=== PATIENT | female | born 1995 ===

== ENCOUNTER 2024-02-19 15:39 | Emergency (ER) | payer SELFPAY ==
[2024-02-19 15:43] VITALS: BP 143/79; PULSE 118; TEMP 38.1; O2SAT 97; BMI 30.2
--- NOTE | 2024-02-19 15:54 | ED.GENADUL1 ---
HPI HPI - General Adult General Chief complaint: Abdominal Pain Stated complaint: ABDOMINAL PAIN, NAUSEA Time Seen by Provider: 02/19/24 15:41 Source: patient Mode of arrival: walk-in Limitations: no limitations History of Present Illness HPI narrative: 28-year-old female presents for nausea and diarrhea. The patient has had this since this morning. 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 No fever or hematemesis. She has been nauseous but no vomiting and she has not had a fever. Related Data Home Medications ?Medication ?Instructions ?Recorded ?Confirmed norgestimate 0.25 mg-ethinyl 1 tab PO DAILY 02/19/24 02/19/24 estradiol 35 mcg tablet sertraline 100 mg tablet 100 mg PO Q24H 02/19/24 02/19/24 Previous Rx's ?Medication ?Instructions ?Recorded ondansetron 4 mg disintegrating 4 mg PO Q6H PRN nausea and 02/19/24 tablet vomiting #20 tabs Allergies Allergy/AdvReac Type Severity Reaction Status Date / Time No Known Drug Allergies Allergy Verified 02/19/24 15:42 Opioid HPI Opioid Management Most Recent Opioid Data: No Data to Display Review of Systems ROS Narrative A ten point review of systems is negative except as noted above. Exam Narrative Exam Narrative: Nurses note and vital signs reviewed and patient is not hypoxic. General: The patient appears in no apparent distress. Patient is resting comfortably on cart. Skin: Warm, dry, no pallor noted. There is no rash noted. Head: Normocephalic, atraumatic Eye: Normal conjunctiva, no drainage Ears, Nose, Mouth, and Throat: oral mucosa is moist. Nares patent. Cardiovascular: Regular Rate and Rhythm Respiratory: Patient is in no distress, no accessory muscle use, lungs are clear to auscultation, no wheezing, rales or rhonchi Back: non-tender GI: Soft. Nondistended. Normal bowel sounds. Minimal tenderness in the mid abdomen Musculoskeletal: The patient has no evidence of calf tenderness, no pitting edema, symmetrical pulses noted bilaterally Neurological: A&O, normal speech Psychiatric: Cooperative Constitutional Vital Signs, click to edit/add: Last Vital Signs Temp 99.2 F 02/19/24 18:11 Pulse 98 H 02/19/24 17:21 Resp 18 02/19/24 17:21 BP 104/50 02/19/24 17:21 Pulse Ox 100 02/19/24 17:21 O2 Del Method Room Air 02/19/24 17:21 Course Vital Signs Vital signs: Vital Signs Temperature 100.6 F H 02/19/24 15:43 Pulse Rate 118 H 02/19/24 15:43 Respiratory Rate 18 02/19/24 15:43 Blood Pressure 143/79 H 02/19/24 15:43 Pulse Oximetry 97 02/19/24 15:43 Oxygen Delivery Method Room Air 02/19/24 15:43 Temperature 99.2 F 02/19/24 18:11 Pulse Rate 98 H 02/19/24 17:21 Respiratory Rate 18 02/19/24 17:21 Blood Pressure 104/50 02/19/24 17:21 Pulse Oximetry 100 02/19/24 17:21 Oxygen Delivery Method Room Air 02/19/24 17:21 Medical Decision Making MDM Narrative Medical decision making narrative: WBC and the rest of her blood work is normal. She feels much better now and is tolerating p.o. liquids. She is able to be discharged home. Temperature has improved with Tylenol. My clinical impression is that she has a viral gastroenteritis. Treatment diagnosis and follow-up were discussed with the patient. I have no clinical suspicion of appendicitis. She was unable to provide a stool specimen to test for C. difficile. Differential Diagnosis Differential Diagnosis: Gastroenteritis, food poisoning, C. difficile Lab Data Lab results reviewed: Yes I reviewed the patient's lab results Labs: Lab Results 02/19/24 Range/Units 16:00 WBC 7.9 (4.0-11.0) 10^3/uL RBC 4.61 (4.20-5.40) 10^6/uL Hgb 12.9 (12.0-16.0) g/dL Hct 38.3 (36.0-48.0) % MCV 83.1 (81.0-99.0) fL MCH 28.0 (26.7-34.0) pg MCHC 33.7 (29.9-35.2) g/dL RDW 13.0 (11.0-15.0) % Plt Count 244 (150-450) 10^3/uL MPV 9.7 (9.5-13.5) fL Neut % (Auto) 84.4 H (43.0-75.0) % Lymph % (Auto) 11.3 L (20.5-60.0) % Josephine % (Auto) 3.4 (1.7-12.0) % Eos % (Auto) 0.3 L (0.9-7.0) % Baso % (Auto) 0.3 (0.2-2.0) % Neut # (Auto) 6.7 H (1.4-6.5) 10^3/uL Lymph # (Auto) 0.9 L (1.2-3.8) 10^3/uL Josephine # (Auto) 0.3 (0.3-0.8) 10^3/uL Eos # (Auto) 0.0 (0.0-0.7) 10^3/uL Baso # (Auto) 0.0 (0.0-0.1) 10^3/uL Abs Immat Gran (auto) 0.02 (0.00-0.03) 10^3/uL Imm/Tot Granulo (auto) 0.3 (0.0-0.5) % Sodium 138 (136-145) mmol/L Potassium 3.8 (3.5-5.1) mmol/L Chloride 101 (98-107) mmol/L Carbon Dioxide 24.0 (21.0-32.0) mmol/L Anion Gap 16.8 BUN 11.0 (7.0-18.0) mg/dL Creatinine 0.85 (0.55-1.02) mg/dL Est GFR ( Amer) >60 (>=60) Est GFR (Non-Af Amer) >60 (>=60) BUN/Creatinine Ratio 12.9 Glucose 114 H (74-106) mg/dL Calcium 8.9 (8.5-10.1) mg/dL Discharge Plan Discharge Stand Alone Forms: Portal Instructions Chief Complaint: Abdominal Pain Clinical Impression: Gastroenteritis Patient Disposition: Home, Self-Care Time of Disposition Decision: 18:18 Condition: Good Mode of Transportation: Private Vehicle Prescriptions / Home Meds: New ondansetron 4 mg tablet,disintegrating 4 mg PO Q6H PRN (Reason: nausea and vomiting) Qty: 20 0RF No Action norgestimate-ethinyl estradiol 0.25-35 mg-mcg tablet 1 tab PO DAILY sertraline 100 mg tablet 100 mg PO Q24H Print Language: Fijian Instructions: Gastroenteritis (ED), Acute Diarrhea (ED) Referrals: Physician,Non-Staff, [Physician] - 1 week
[2024-02-19 16:10] LABS: Basophils Percent Auto 0.3 % (0.2-2.0); Eosinophils Percent Auto 0.3 % (0.9-7.0); Hematocrit 38.3 % (36.0-48.0); Hemoglobin 12.9 g/dL (12.0-16.0); Immature Granulocytes Abs Auto 0.02 10^3/uL (0.00-0.03); Immature Granulocytes Pct Auto 0.3 % (0.0-0.5); Lymphocytes Absolute Auto 0.9 10^3/uL (1.2-3.8); Lymphocytes Percent Auto 11.3 % (20.5-60.0); Mean Corpuscular HGB Conc 33.7 g/dL (29.9-35.2); Mean Corpuscular Volume 83.1 fL (81.0-99.0); Mean Platelet Volume 9.7 fL (9.5-13.5); Monocytes Absolute Auto 0.3 10^3/uL (0.3-0.8); Monocytes Percent Auto 3.4 % (1.7-12.0); Neutrophils Absolute Auto 6.7 10^3/uL (1.4-6.5); Neutrophils Percent Auto 84.4 % (43.0-75.0); Platelet Count 244 10^3/uL (150-450); Red Blood Count 4.61 10^6/uL (4.20-5.40); White Blood Count 7.9 10^3/uL (4.0-11.0)
[2024-02-19] MEDS: 0.9 % SODIUM CHLORIDE 1,000 ML 1000 ML IV (16:12)
[2024-02-19] MEDS: ACETAMINOPHEN 325 MG TABLET 650 MG PO (16:13)
[2024-02-19] MEDS: ONDANSETRON PF 4 MG/2 ML VIAL IV (16:13)
[2024-02-19 16:19] LABS: Anion Gap 16.8; BUN Creatinine Ratio 12.9; Calcium 8.9 mg/dL (8.5-10.1); Chloride 101 mmol/L (98-107); Estimated GFR (African America >60 (>=60); Estimated GFR (Non-African Ame >60 (>=60); Glucose 114 mg/dL (74-106); Potassium 3.8 mmol/L (3.5-5.1); Sodium 138 mmol/L (136-145)
[2024-02-19 17:21] VITALS: BP 104/50; PULSE 98; O2SAT 100
[2024-02-19 18:11] VITALS: TEMP 37.3
== END 2024-02-19 18:30 | disposition home or self-care (01) ==
PROVIDERS: Emergency Provider Emergency Medicine; PCP Family Medicine
DX: K52.9 Noninfective gastroenteritis and colitis, unspecified (principal)
CPT/HCPCS: 36415; 80048; 85025; 87045; 87046; 87427; 87493; 96361; 96374; 99284; J2405